=== PATIENT | male | born 1985 | race American Indian/Alaskan Native ===

== ENCOUNTER 2017-04-23 00:10 | Emergency (ER) | payer OTHER ==
--- NOTE | 2017-04-23 02:49 | Emergency Department Report ---
ED Chest Pain HPI - General Chief Complaint: Chest Pain Stated Complaint: LEFT ARM NUMBNESS CHEST PAIN Time Seen by Provider: 04/23/17 02:06 Source: patient, family Mode of arrival: Ambulatory Limitations: No Limitations - History of Present Illness Initial Comments: This is 31-year-old male that presents here complaining of left chest pain under his left breast since 4 AM Tuesday he said he woke up with this. He said he had diarrhea times one day that has resolved. He said it feels like pressure and it comes and goes. No radiation to extremities. He said he has some left arm numbness. Patient said he works at [employer] and he lifts heavy objects so he is not sure whether or not this caused that. He denies any history of heart disease or any medical problems. Denies any nausea or vomiting. Denies any trauma, cough, shortness of breath, difficulty breathing. Pain is 2 out of 10. Pain is achy. He has any fever or chills. Patient denies any lung diseases shallow by plane or car. He denies any history of blood clots or family history of blood clots. Denies any clotting disorder. Denies taken any hormones. Has a recent surgery or cancer. MD Complaint: chest pain -: This morning Onset: during rest Pain Location: left chest Pain Radiation: none Severity: mild Severity scale (0 -10): 2 Quality: pressure Consistency: intermittent, now resolved Improves With: nothing Worsens With: movement Context: other (lifts heavy objects) re: denies: nausea, vomting, diaphoresis, dyspnea, sense of impending doom Other Symptoms: denies: cough, fever, syncope, rash, acid taste in mouth, leg swelling, palpitations, burping, other (diarrhea day resolved) Treatments Prior to Arrival: none Aspirin use within the Past 7 Days: (0) No - Related Data On Oral Contraceptives: No Previous Rx's Medication Instructions Recorded Last Taken Type Ibuprofen [Motrin] 600 mg PO Q8H PRN 5 Days #15 tablet 04/23/17 Unknown Rx Allergies Allergy/AdvReac Type Severity Reaction Status Date / Time No Known Allergies Allergy Unverified 04/23/17 01:21 Heart Score - HEART Score History: Slightly suspicious EKG: Normal Age: < 45 Risk factors: No known risk factors Troponin: < normal limit HEART Score: 0 ED Review of Systems ROS: Stated complaint: LEFT ARM NUMBNESS CHEST PAIN Other details as noted in HPI Comment: All other systems reviewed and negative Constitutional: no symptoms reported Respiratory: no symptoms reported Cardiovascular: chest pain. denies: palpitations, dyspnea on exertion, orthopnea, edema, syncope, paroxysmal nocturnal dyspnea Gastrointestinal: denies: abdominal pain, nausea, vomiting, diarrhea, constipation, hematemesis, melena, hematochezia Genitourinary: denies: urgency, dysuria, frequency, hematuria, discharge, testicular pain, testicular mass Musculoskeletal: denies: back pain, joint swelling, arthralgia, myalgia Skin: denies: rash Neurological: numbness. denies: headache, weakness, abnormal gait, vertigo ED Past Medical Hx - Past Medical History Previous Medical History?: No - Surgical History Past Surgical History?: No - Family History Family history: hypertension - Social History Smoking Status: Never Smoker Substance Use Type: None - Medications Home Medications: Home Medications Medication Instructions Recorded Confirmed Last Taken Type Ibuprofen [Motrin] 600 mg PO Q8H PRN 5 Days #15 tablet 04/23/17 Unknown Rx ED Physical Exam - General Limitations: No Limitations General appearance: alert, in no apparent distress - Head Head exam: Present: atraumatic, normocephalic, normal inspection - Eye Eye exam: Present: normal appearance, PERRL, EOMI. Absent: nystagmus, periorbital swelling, periorbital tenderness Pupils: Present: normal accommodation - ENT ENT exam: Present: normal exam, normal orophraynx, mucous membranes moist, TM's normal bilaterally, normal external ear exam - Neck Neck exam: Present: normal inspection, full ROM, other (no c-spine tenderness). Absent: tenderness, meningismus, lymphadenopathy, thyromegaly - Respiratory Respiratory exam: Present: normal lung sounds bilaterally. Absent: respiratory distress, wheezes, rales, rhonchi, stridor, chest wall tenderness, accessory muscle use, decreased breath sounds - Cardiovascular Cardiovascular Exam: Present: regular rate, normal rhythm, normal heart sounds. Absent: systolic murmur, diastolic murmur - GI/Abdominal GI/Abdominal exam: Present: soft, normal bowel sounds. Absent: distended, tenderness, guarding, rebound, rigid, organomegaly, mass, bruit, pulsatile mass , hernia - Extremities Exam Extremities exam: Present: normal inspection, full ROM, normal capillary refill , other. Absent: tenderness, pedal edema, joint swelling, calf tenderness - Back Exam Back exam: Present: normal inspection, full ROM. Absent: tenderness, CVA tenderness (R), CVA tenderness (L), muscle spasm, paraspinal tenderness, vertebral tenderness, rash noted - Neurological Exam Neurological exam: Present: alert, oriented X3, normal gait, reflexes normal, other (no focal neurological deficit). Absent: motor sensory deficit - Psychiatric Psychiatric exam: Present: normal affect, normal mood - Skin Skin exam: Present: warm, dry, intact, normal color. Absent: rash ED Course Vital Signs 04/23/17 01:22 Temperature 97.7 F Pulse Rate 69 Respiratory 16 Rate Blood Pressure 144/82 [Right] O2 Sat by Pulse 97 Oximetry - Reevaluation(s) Reevaluation #1: 04/23/17 03:41 Patient remained stable throughout ED course chest pain has resolved since he's been emergency room. Patient had no episode of diarrhea and emergency room. He said that has resolved since this morning. Lab work is stable, EKG stable. Troponin are stable MARCIANO score - Marciano Score Age > 65: (0) No Aspirin use within the Past 7 Days: (0) No 3 or more CAD Risk Factors: (0) No 2 or more Angina events in past 24 hrs: (0) No Known CAD with more than 50% Stenosis: (0) No Elevated Cardiac Markers: (0) No ST Deviation Greater than 0.5mm: (0) No (with elevated CK and suspect from muscle injury) MARCIANO Score: 0 ED Medical Decision Making - Lab Data Please refer the patient lab work on another chart. Patient CMP normal PT INR and PTT within normal limits total CK is 311 which is mildly elevated. Troponin and CK-MB is stable lipase is normal. cbc stable. His x-ray is within normal limits. - EKG Data -: EKG Interpreted by Me (attending physician) EKG shows normal: sinus rhythm (67 bpm) Rate: normal - EKG Data Interpretation: no acute changes - Radiology Data Radiology results: report reviewed No acute cardiopulmonary findings - Medical Decision Making ED course: Pt here report that he had episode of chest pain when he woke up this morning with intermittent arm numbness on the left side which has resolved. He said he had a episode of diarrhea 1 day which has resolved today. Patient had no chest pain, arm numbness or diarrhea while in the emergency room. CBC and CMP is stable, troponin and CK-MB stable. CK level mildly elevated suspect from muscle injury. Patient able to tolerate oral liquids well. Chest x-ray revealed no acute cardiopulmonary processes. EKG is stable. Please refer to the lab section and radial is section on the differential chart sincPt chart has been changed due to error. I discussed the patient all his lab results him a EKG and chest x-ray. He voiced understanding. I discussed patient that if he has recurrent chest pain to return to the emergency room otherwise to follow up with his primary care physician and also power system electrical engineer who is Dr. Sosa who was environmental health technician. She is at no risk for PE/DVT on perc rule and Wells criteria He voiced understanding of discharge instruction and treatment plan along with all his lab work, chest x- ray and EKG. Patient discharged home in stable condition with his family member. Critical care attestation.: If time is entered above; I have spent that time in minutes in the direct care of this critically ill patient, excluding procedure time. ED Disposition Clinical Impression: Atypical chest pain, Elevated CK, Musculoskeletal pain Disposition: DC- TO HOME OR SELFCARE Is pt being admited?: No Does the pt Need Aspirin: No Condition: Stable Instructions: Chest Pain (ED), Musculoskeletal Pain (ED) Additional Instructions: A component of your blood work is slightly elevated and this reflects muscle breakdown more than likely from physical activity. Please increase fluid intake to 2-3 L of fluid per day. Avoid Lifting heavy objects for the next 72 hours See referral to power system electrical engineer. Follow-up with primary care physician and if he do not have a primary care physician follow-up at [facility] . Prescriptions: Ibuprofen [Motrin] 600 mg PO Q8H PRN 5 Days #15 tablet PRN Reason: Pain [facility] - 04/27/17 LYNNE SOSA MD [Staff Physician] - 04/27/17 Forms: Accompanied Note, Work/School Release Form(ED)
[2017-04-23 04:19] VITALS: BP 132/88
== END 2017-04-23 04:09 | disposition home or self-care (01) ==
LOC: ED 00:58
DX: R07.89 Other chest pain (principal); R74.8 Abnormal levels of other serum enzymes
CPT/HCPCS: 99282